=== PATIENT | female | born 1990 ===

== ENCOUNTER 2018-03-07 10:50 | Inpatient (IN) ==
[2018-03-07] MEDS ORDERED: DEXTROSE 5%-LACTATED RINGERS 1,000 ML IV PRN (11:27)
[2018-03-07] MEDS ORDERED: diphenhydrAMINE HCL 50 MG/ML VIAL IV ONE (11:27)
[2018-03-07] MEDS: METOCLOPRAMIDE HCL 5 MG/ML VIAL IV PRN ×4 (11:47→12:41)
[2018-03-07] MEDS ORDERED: BUTORPHANOL TARTRATE 2 MG/ML VIAL IV ONE (13:08)
[2018-03-07 13:41] LABS: Hematocrit 36.1 % (37.0-47.0); Mean Cell Volume 95.8 fl (78-100); Mean Corpuscular Hemoglobin 31.8 pg (27-31); Mean Corpuscular Hgb Conc 33.2 g/dl (32-36); Mean Platelet Volume 10.1 fl (8-12.5); Neutrophil # 6.5 K/mm3 (1.3-6.0); Neutrophil % 67.1 % (42-75.0); Platelet Count 197 K/mm3 (150-450); Red Blood Count 3.77 M/mm3 (4.2-5.4); Red Cell Distribution Width 13.5 % (11.5-14.0); White Blood Count 9.7 K/mm3 (4.0-10.5)
[2018-03-07 13:47] LABS: Anion Gap 11.9 mmol/L (6.8-13.8); BUN/Creatinine Ratio 6.1 (9.0-21.6); Calcium * 8.9 mg/dL (7.9-10.9); Carbon Dioxide 25.8 mmol/L (24-32.6); Potassium 3.7 mmol/L (3.4-4.6)
[2018-03-07 13:50] LABS: Random Urine Total Protein 6.9 mg/dL (0-12)
[2018-03-07] MEDS ORDERED: MISOPROSTOL 100 MCG TABLET VG PRN (14:10)
[2018-03-07 14:39] LABS: Random Urine Total Protein 6.9 mg/dL (0-12)
[2018-03-07 14:41] LABS: Albumin * 2.3 gm/dl (3.4-5.0); Bilirubin, Total 0.2 mg/dL (0.0-1.1); Total Protein 5.9 gm/dL (6.2-8.2)
[2018-03-07 14:42] LABS: Anion Gap 11.9 mmol/L (6.8-13.8); BUN/Creatinine Ratio 6.1 (9.0-21.6); Ca. Corrected For Albumin 9.9 mg/dL (8.4-10.2); Calcium * 8.9 mg/dL (7.9-10.9); Carbon Dioxide 25.8 mmol/L (24-32.6); Potassium 3.7 mmol/L (3.4-4.6)
[2018-03-07] MEDS ORDERED: RINGER'S SOLUTION,LACTATED 1,000 ML IV PRN (19:50)
[2018-03-07] MEDS ORDERED: RINGER'S SOLUTION,LACTATED 1,000 ML IV ONE (19:50)
[2018-03-07] MEDS ORDERED: NALOXONE HCL 1 MG/1 ML SYRG IV PRN ×2 (19:54→20:39)
[2018-03-07] MEDS ORDERED: ONDANSETRON HCL/PF 2 MG/ML VIAL IV PRN ×2 (19:54→20:39)
[2018-03-07] MEDS ORDERED: BUPIVACAINE HCL/0.9 % NACL/PF 250 ML EP PRN ×2 (19:54→20:39)
[2018-03-07] MEDS ORDERED: OXYTOCIN/DEXTROSE 5%-WATER 30 UNITS/500 ML BAG IV ONE (20:20)
--- NOTE | 2018-03-07 20:39 | ANES ---
Anesthesia Pre Procedure Eval Vitals/Labs: Last Vital Signs Temp 35.9 C L 03/07/18 20:01 Pulse 88 03/07/18 20:01 Resp 18 03/07/18 20:01 BP 138/84 03/07/18 20:01 Pulse Ox 98 03/07/18 20:01 HOME MEDICATIONS vitamin,calcium,slwyuilx-qyhb-bvqnd acid tablet 1 tab PO DAILY [Last Taken 03/06/18 2100] Allergies/Adverse Reactions: Allergies Allergy/AdvReac Type Severity Reaction Status Date / Time No Known Drug Allergies Allergy Verified 03/05/18 10:24 - Planned Procedure Planned Procedure: INDUCTION Medication List Reviewed:: Yes Allergies Verified: Yes Medical History (Last Reviewed 03/07/18 @ 20:39 by Tejinder Baird CRNA) Hypoglycemia Onset Date: ~2002 Seizure Onset Date: ~2002 Surgical History (Last Reviewed 03/07/18 @ 20:39 by Tejinder Baird CRNA) No pertinent past surgical history History of adenoidectomy History of tonsillectomy Family History (Last Reviewed 03/07/18 @ 20:39 by Tejinder Baird CRNA) Mother Fibromyalgia Father Alive and well Grandmother Breast cancer Grandfather Throat cancer Grandmother Breast cancer - Family Anesthesia History Family History:: no untoward family reactions to anesthesia - Airway/Neck/Teeth Within Normal Limits:: Yes Mallampatti Score: 2 Thyromental (T-M) distance: > 6 cm Mandibulo Hyoid distance: > 3 cm - Respiratory Respiratory: lungs clear Smoking Status: Never smoker Sleep Apnea currently treated: No - Cardiovascular Patient History - Cardiac/Respiratory: No pertinent hx Tolerates Activity: Good Heart Sounds: S1 & S2, Regular - Anesthesia Assessment and Plan ASA Class: PS, II, E Anesthesia Type Plan: Epidural Planned difficult intubation/equipment available: No
[2018-03-07] MEDS: fentaNYL CITRATE/PF 50 MCG/ML AMPUL IT SCH (20:51)
--- NOTE | 2018-03-07 21:04 | ANES ---
Post Anesthesia Discharge - Transfer of Care Transfer of Care handoff given to nurse: Yes - Anesthesia Post Op Note Anesthesia Post Op Note: Care transferred to OB RN
--- NOTE | 2018-03-07 21:05 | ANES ---
Anesthesia Procedure Note Procedure Note: ANESTHESIA PROCEDURE NOTE Date of Procedure: 03/07/2018 Time of procedure:[]. Performed by: Simone Baird CRNA Power Cleaner Operator: None. Preprocedure diagnosis: Active labor. Post procedure diagnosis: Same. Procedure: Insertion of labor epidural. Indications: The patient is a [27] -year-old [multigravida] female in active labor requesting labor epidural for pain management. Findings: See below. Details of the procedure: The patient was placed in a sitting position. Back was prepped with DuraPrep. Patient was then draped in a sterile fashion. Lidocaine 1% was infiltrated to the skin and subcutaneous tissues at the level of the L3 4 interspace. The epidural space was identified using a 18-gauge Tuohy needle with [id number] technique. 20 mcg fentanyl was given intrathecally using a 27 ga. spinal needle. Epidural catheter was inserted without difficulty. Negative test dose was elicited using 5 mL of 1.5% preservative-free lidocaine plus epinephrine 1 200,000. The epidural catheter was then taped and secured in place. EBL: Minimal. Fluids: N/A. Specimen: N/A. Post procedure condition: The patient tolerated the procedure well. No complications were noted. Thank you for this consultation. Smith CRNA
--- NOTE | 2018-03-07 21:05 | ANES ---
Post Anesthesia Assessment - Vital Signs Vitals: Last Vital Signs Temp 35.9 C L 03/07/18 20:01 Pulse 88 03/07/18 20:01 Resp 18 03/07/18 20:01 BP 138/84 03/07/18 20:01 Pulse Ox 98 03/07/18 20:01 Airway Patency: Normal - Mental Status Level Of Consciousness: Awake - Pain Level Pain Score: 2 - N/V Assessment Nausea/Vomiting Presence: None Dehydration:: No
[2018-03-08] MEDS ORDERED: fentaNYL CITRATE/PF 50 MCG/ML AMPUL ONE (09:22)
[2018-03-08] MEDS ORDERED: LIDOCAINE HCL 50 ML VIAL ONE (09:37)
[2018-03-08] MEDS: fentaNYL CITRATE/PF 50 MCG/ML AMPUL IT SCH (09:41)
--- NOTE | 2018-03-08 10:08 | ANES ---
Anesthesia Procedure Note Procedure Note: ANESTHESIA PROCEDURE NOTE Date of Procedure: 03/08/2018 Time of procedure:[]. Performed by: Simone Baird CRNA Machine Slat Basket Maker: None. Preprocedure diagnosis: Active labor.Displaced epidural catheter Post procedure diagnosis: Same. Procedure: Reinsertion of labor epidural. Indications: The patient is a [27] -year-old [multigravida] female in active labor requesting labor epidural reinsertion for pain management. epidural catheter that was placed on 03/07/18 became displaced and migrated outside of epidural space. Findings: See below. Details of the procedure: The patient was placed in a sitting position. The displaced epidural catheter was completely removed from patient's back intact. back was prepped with DuraPrep. Patient was then draped in a sterile fashion. Lidocaine 1% was infiltrated to the skin and subcutaneous tissues at the level of the L2 3 interspace. The epidural space was identified using a 18-gauge Tuohy needle with [id number] technique. 20 mcg fentanyl was given intrathecally using a 27 ga. spinal needle. Epidural catheter was inserted without difficulty. Negative test dose was elicited using 5 mL of 1.5% preservative-free lidocaine plus epinephrine 1 200,000. The epidural catheter was then taped and secured in place. EBL: Minimal. Fluids: N/A. Specimen: N/A. Post procedure condition: The patient tolerated the procedure well. No complications were noted. Thank you for this consultation. Smith CRNA
--- NOTE | 2018-03-08 11:29 | OR ---
Operative Report - Dictated Report Narrative: Spontaneous vaginal delivery of viable female at 1106 on 03/08/2018 with Apgars 9 and 9, weighing 3528 g in LAURA position with tight nuchal cord 1. Cord clamping delayed approximately 1 minute Placenta delivered complete, intact, with three vessel cord Estimated blood loss: less than 50 ml Anesthesia: epidural Lacerations: First-degree vaginal laceration repaired with 3-0 Vicryl Rapide. History for Definition: * The number of deliveries resulting in a live the patient experienced prior to current hospitalization * The previous delivery of live twins or any live multiple gestation is considered one live event. *If primagravida or nulliparous is documented select zero for the number of previous live births. Live Events: 1
[2018-03-08] MEDS ORDERED: SENNOSIDES 8.6 MG TABLET PO PRN (11:30)
[2018-03-08] MEDS ORDERED: BENZOCAINE/MENTHOL 81 SPRAY CAN TP PRN (11:30)
[2018-03-08] MEDS ORDERED: BISACODYL 10 MG SUPP.RECT RC PRN (11:30)
[2018-03-08] MEDS ORDERED: HYDROCORTISONE 30 APPL TUBE TP PRN (11:30)
[2018-03-08] MEDS ORDERED: oxyCODONE HCL/ACETAMINOPHEN 1 TAB TABLET PO PRN (11:30)
[2018-03-08] MEDS ORDERED: OXYTOCIN/DEXTROSE 5%-WATER 30 UNITS/500 ML BAG IV ONE (11:30)
[2018-03-08] MEDS ORDERED: GLYCERIN/WITCH HAZEL LEAF 40 APPL BOX TP PRN (11:30)
--- NOTE | 2018-03-08 11:42 | HP ---
Chief Complaint - Chief Complaint Date of Service: 03/08/18 Time of Service: 11:33 Chief Complaint: induction of labor for reoccuring migraines. History of Present Illness: 27yo at 39 3/7wks on day of induction for reoccuring migraines the last week of her . She had a few elevated blood pressures which were attributed to the pain from her migraines since they resolved after the migraine was treated and several preeclamptic labs over the past week were all WNL. This complicated by migraines. Rh positive Rubella Nonimmune GBS negative Medical History (Last Reviewed 03/08/18 @ 11:36 by Jason Silver DO) Hypoglycemia Onset Date: ~2002 Seizure Onset Date: ~2002 Surgical History: Surgical History (Last Reviewed 03/08/18 @ 11:36 by Jason Silver DO) No pertinent past surgical history History of adenoidectomy History of tonsillectomy Family History: Family History (Last Reviewed 03/08/18 @ 11:36 by Jason Silver DO) Mother Fibromyalgia Father Alive and well Grandmother Breast cancer Grandfather Throat cancer Grandmother Breast cancer Social History: Preferred Language Welsh Smoking Status Never smoker Review Of Systems (GEN) - Review of Systems Generalized/Overall Review: Present: No Symptoms Reported, Diaphoresis EENTM: Present: No Symptoms Reported Respiratory: Present: No Symptoms Reported Cardiac: Present: No Symptoms Reported Abdominal: Present: No Symptoms Reported Genitourinary: Present: No Symptoms Reported Musculoskeletal: Present: No Symptoms Reported Neurological: Present: Headache Skin: Present: No Symptoms Reported Endocrine: Present: No Symptoms Reported Allergies/Adverse Reactions: Allergies Allergy/AdvReac Type Severity Reaction Status Date / Time No Known Drug Allergies Allergy Verified 03/05/18 10:24 Home Medications: HOME MEDICATIONS vitamin,calcium,qymqwuiz-wzsk-eozlj acid tablet 1 tab PO DAILY [Last Taken 03/06/18 2100] Exam - Exam Vital Signs: Vital Signs - Last Taken Temp 35.9 C L 03/07/18 20:01 Pulse 88 03/07/18 20:01 Resp 18 03/07/18 20:01 BP 138/84 03/07/18 20:01 Pulse Ox 98 03/07/18 20:01 Constitutional: Present: Alert, Oriented x3, Cooperative, Mild distress ENT Exam: Present: hearing grossly normal Neck: Present: non-tender, supple Breasts: Present: Exam deferred Cardiovascular/Chest: Present: normal peripheral pulses, regular rate, rhythm, no edema Peripheral Pulses: radial (R): 2+, radial (L): 2+ Abdomen: Present: soft, nontender, no rebound tenderness, other - gravid /Rectal: Present: Other - Cervix- FT/20/-3 Extremity: Present: non-tender, no pedal edema, no calf tenderness Skin Exam: Present: normal color, warm/dry, no cyanosis Lymphatic: Present: no adenopathy Neurologic: Present: no motor/sensory deficits, normal mood/affect, oriented x 3 , other - DTR 2/4 bilateral patella, no clonus Appearance: Present: appropriate appearance, appropriate insight Eye contact: Present: cooperative, good eye contact, normal speech Thoughts: Present: normal thought pattern Diagnostic Studies: Abnormal Lab Results 03/07/18 03/07/18 03/07/18 Range/Units 13:10 13:34 13:34 RBC 3.77 L (4.2-5.4) M/mm3 Hgb 12.0 L (12.5-16.0) gm/dL Hct 36.1 L (37.0-47.0) % MCH 31.8 H (27-31) pg Immature Gran % (Auto) 0.60 H (0.001-0.429) % Immature Gran # (Auto) 0.06 H (0.000-0.0310) K/mm3 Neutrophils # 6.5 H (1.3-6.0) K/mm3 Est GFR (Non-Af Amer) 159 H D (60-130) mL/min BUN/Creatinine Ratio 6.1 L (9.0-21.6) Random Glucose 66 L (70-110) mg/dL ALT (19-67) U/L Total Protein (6.2-8.2) gm/dL Albumin (3.4-5.0) gm/dl Ur Random Creatinine 44.3 L (60-200) mg/dL 03/07/18 03/07/18 Range/Units 13:34 13:34 RBC (4.2-5.4) M/mm3 Hgb (12.5-16.0) gm/dL Hct (37.0-47.0) % MCH (27-31) pg Immature Gran % (Auto) (0.001-0.429) % Immature Gran # (Auto) (0.000-0.0310) K/mm3 Neutrophils # (1.3-6.0) K/mm3 Est GFR (Non-Af Amer) 159 H (60-130) mL/min BUN/Creatinine Ratio 6.1 L (9.0-21.6) Random Glucose 66 L (70-110) mg/dL ALT 11 L (19-67) U/L Total Protein 5.9 L (6.2-8.2) gm/dL Albumin 2.3 L (3.4-5.0) gm/dl Ur Random Creatinine 44.3 L (60-200) mg/dL Laboratory Results WBC 9.7 K/mm3 (4.0-10.5) 03/07/18 13:34 RBC 3.77 M/mm3 (4.2-5.4) L 03/07/18 13:34 Hgb 12.0 gm/dL (12.5-16.0) L 03/07/18 13:34 Hct 36.1 % (37.0-47.0) L 03/07/18 13:34 MCV 95.8 fl (78-100) 03/07/18 13:34 MCH 31.8 pg (27-31) H 03/07/18 13:34 MCHC 33.2 g/dl (32-36) 03/07/18 13:34 RDW 13.5 % (11.5-14.0) 03/07/18 13:34 Plt Count 197 K/mm3 (150-450) 03/07/18 13:34 MPV 10.1 fl (8-12.5) 03/07/18 13:34 Immature Gran % (Auto) 0.60 % (0.001-0.429) H 03/07/18 13:34 Immature Gran # (Auto) 0.06 K/mm3 (0.000-0.0310) H 03/07/18 13:34 Neutrophils % 67.1 % (42-75.0) 03/07/18 13:34 Lymphocytes % 23.5 % (20-51) 03/07/18 13:34 Monocytes % 7.8 % (0.0-9) 03/07/18 13:34 Eosinophils % 0.8 % (0.0-3.0) 03/07/18 13:34 Basophils % 0.2 % (0.0-1.0) 03/07/18 13:34 Nucleated RBC % 0.0 k/mm3 (0-1) 03/07/18 13:34 Neutrophils # 6.5 K/mm3 (1.3-6.0) H 03/07/18 13:34 Lymphocytes # 2.27 k/mm3 (1.5-3.5) 03/07/18 13:34 Monocytes # 0.8 k/mm3 (0.0-1.0) 03/07/18 13:34 Eosinophils # 0.1 k/mm3 (0.0-0.7) 03/07/18 13:34 Absolute Basophils 0.0 k/mm3 (0.0-0.1) 03/07/18 13:34 Sodium 136 mmol/L (132-142) 03/07/18 13:34 Plasma Sodium 135 mmol/L (130-142) 03/07/18 13:34 Potassium 3.7 mmol/L (3.4-4.6) 03/07/18 13:34 Chloride 102 mmol/L (97-106) 03/07/18 13:34 Carbon Dioxide 25.8 mmol/L (24-32.6) 03/07/18 13:34 Anion Gap 11.9 mmol/L (6.8-13.8) 03/07/18 13:34 BUN 3 mg/dL (3-23) 03/07/18 13:34 Creatinine 0.49 mg/dL (0.4-1.4) 03/07/18 13:34 Est GFR (Non-Af Amer) 159 mL/min (60-130) H 03/07/18 13:34 BUN/Creatinine Ratio 6.1 (9.0-21.6) L 03/07/18 13:34 Random Glucose 66 mg/dL (70-110) L 03/07/18 13:34 Calcium 8.9 mg/dL (7.9-10.9) 03/07/18 13:34 Calcium Adj for Albumin 9.9 mg/dL (8.4-10.2) 03/07/18 13:34 Total Bilirubin 0.2 mg/dL (0.0-1.1) 03/07/18 13:34 AST 12 U/L (0-48) 03/07/18 13:34 ALT 11 U/L (19-67) L 03/07/18 13:34 Alkaline Phosphatase 112 U/L (50-170) 03/07/18 13:34 Total Protein 5.9 gm/dL (6.2-8.2) L 03/07/18 13:34 Albumin 2.3 gm/dl (3.4-5.0) L 03/07/18 13:34 Ur Random Creatinine 44.3 mg/dL (60-200) L 03/07/18 13:34 U Random Total Protein 6.9 mg/dL (0-12) 03/07/18 13:34 U [place] Prot/Creat Ratio 156 mg/gm (0-199) 03/07/18 13:10 Assessment/Plan - Assessment/Plan (1) Migraines Assessment: admit for induction of labor. Cytotec cervical ripening and pitocin augmentation PRN. Epidural PRN. Problem: Acute Qualifiers: Migraine type: without aura Intractability: intractable
[2018-03-08] MEDS: IBUPROFEN 800 MG TABLET PO PRN ×2 (12:01→20:02)
[2018-03-08] MEDS: oxyCODONE HCL/ACETAMINOPHEN 1 TAB TABLET PO PRN ×2 (16:32→20:02)
[2018-03-08] MEDS: DOCUSATE SODIUM 100 MG CAPSULE PO SCH (20:02)
[2018-03-09] MEDS: IBUPROFEN 800 MG TABLET PO PRN ×3 (06:53→19:09)
[2018-03-09] MEDS: DOCUSATE SODIUM 100 MG CAPSULE PO SCH ×3 (08:44→22:35)
--- NOTE | 2018-03-09 09:16 | PN ---
Subjective - Date and Time Seen Date: 03/09/18 Time: 09:15 Objective - Vitals Vitals: Last Vital Signs Temp 36.2 C 03/09/18 07:03 Pulse 85 03/09/18 07:03 Resp 18 03/09/18 07:03 BP 128/85 03/09/18 07:03 Pulse Ox 96 03/09/18 07:03 Patient denies complaints. Lochia wnl Abdomen - soft, nontender Uterus - firm, at umbilicus + 1 No calf tenderness Impression: day #1 - s/p spontaneous vaginal delivery. Plan: Continue routine care Cauti Physician Documentation - Urinary Catheter Management Urethral ([place]) Date of Insertion: 03/07/18 Time of Insertion: 21:32 Assessment/Plan - Problems/Diagnosis (1) Migraines Problem: Acute Qualifiers: Migraine type: without aura Intractability: intractable
[2018-03-09] MEDS: oxyCODONE HCL/ACETAMINOPHEN 1 TAB TABLET PO PRN ×2 (12:42→19:10)
[2018-03-10] MEDS: oxyCODONE HCL/ACETAMINOPHEN 1 TAB TABLET PO PRN ×2 (06:15→10:18)
[2018-03-10] MEDS: IBUPROFEN 800 MG TABLET PO PRN (06:15)
--- NOTE | 2018-03-10 07:32 | PN ---
Subjective - Date and Time Seen Date: 03/10/18 Time: 07:32 Objective - Vitals Vitals: Last Vital Signs Temp 36.5 C 03/09/18 19:27 Pulse 90 03/09/18 19:27 Resp 14 03/09/18 19:27 BP 129/83 03/09/18 19:27 Pulse Ox 95 03/09/18 15:35 Patient denies complaints. Lochia wnl Abdomen - soft, nontender Uterus - firm, at umbilicus No calf tenderness Impression: day #2 - s/p spontaneous vaginal delivery. Plan: Routine discharge instructions Cauti Physician Documentation - Urinary Catheter Management Urethral ([place]) Date of Insertion: 03/07/18 Time of Insertion: 21:32 Assessment/Plan - Problems/Diagnosis (1) Migraines Problem: Acute Qualifiers: Migraine type: without aura Intractability: intractable
[2018-03-10] MEDS: DOCUSATE SODIUM 100 MG CAPSULE PO SCH (10:18)
[2018-03-10 12:15] VITALS: BP 129/87
== END 2018-03-10 11:30 | disposition home or self-care (01) | DRG 775 ==
LOC: OBCLINIC 10:50 → OB 14:08
PROVIDERS: ADMIT Obstetrics & Gynecology; ATTEND Obstetrics & Gynecology
CPT/HCPCS: 36415; 59025; 80048; 80053; 82570; 84155; 84156; 85025